=== PATIENT | male | born 1945 | race Caucasian/White ===

== ENCOUNTER 2021-05-04 13:18 | Emergency (ER) | payer MEDICARE ==
[2021-05-04 14:17] LABS: BASOPHIL 0.2 % (0-2); EOSINOPHIL 0.2 % (0-7); HCT 38.9 % (42.0-52.0); HGB 13.2 g/dl (13.2-18.0); LYMPHOCYTE 27.8 % (15-48); MCH 32.4 pg (25.0-31.0); MCHC 33.9 g/dL (32.0-36.0); MCV 95.6 fL (78.0-100.0); MONOCYTE 13.1 % (0-12); MPV 11.7 fL (6.0-9.5); NEUTROPHIL 58.5 % (41-80); NRBC 0; PLT 115 K/uL (150-400); RBC 4.07 M/uL (4.70-6.00); RDW 13.4 % (11.5-14.0); WBC 4.1 K/uL (4.0-10.5)
[2021-05-04 14:32] LABS: ALBUMIN 3.8 g/dL (3.4-5.0); BILIRUBIN - TOTAL 0.7 mg/dL (0.2-1.0); BUN/CREAT RATIO (CALC) 12.2 RATIO; CREATININE 1.48 mg/dL (0.67-1.17); GLOBULIN (CALCULATION) 3.6 g/dL; POTASSIUM 4.4 mmol/L (3.5-5.1); TOTAL PROTEIN 7.4 g/dL (6.4-8.2)
== END 2021-05-04 15:58 | disposition home or self-care (01) ==
LOC: FER 13:18
PROVIDERS: Emergency Medicine
DX: J98.11 Atelectasis (principal); N17.9 Acute kidney failure, unspecified; Z87.891 Personal history of nicotine dependence; Z20.822 Contact with and (suspected) exposure to COVID-19
CPT/HCPCS: 36415; 36600; 71045; 80053; 82803; 85025; 93005; U0002

== ENCOUNTER 2021-05-07 22:47 | Day surgery (SDCO) | payer MEDICARE ==
[~2021-05-07] VITALS: Ht 177.8 cm; Wt 97.7 kg
[2021-05-07 23:22] LABS: BASOPHIL 0.2 % (0-2); EOSINOPHIL 0 % (0-7); HCT 37.7 % (42.0-52.0); HGB 12.8 g/dl (13.2-18.0); LYMPHOCYTE 27.8 % (15-48); MCH 31.5 pg (25.0-31.0); MCV 92.9 fL (78.0-100.0); MONOCYTE 11.4 % (0-12); MPV 10.9 fL (6.0-9.5); NEUTROPHIL 60.2 % (41-80); NRBC 0; RBC 4.06 M/uL (4.70-6.00); RDW 13.2 % (11.5-14.0); WBC 4.5 K/uL (4.0-10.5)
[2021-05-07 23:37] LABS: PLT 90 K/uL (150-400)
[2021-05-07 23:41] LABS: LACTIC ACID 1.1 mmol/L (0.4-1.9)
[2021-05-08 00:27] LABS: ALBUMIN 3.5 g/dL (3.4-5.0); BILIRUBIN - TOTAL 0.7 mg/dL (0.2-1.0); BUN/CREAT RATIO (CALC) 14.8 RATIO; C-REACTIVE PROTEIN 3.4 mg/dL (<=0.90); CREATININE 1.49 mg/dL (0.67-1.17); GLOBULIN (CALCULATION) 3.8 g/dL; POTASSIUM 4.3 mmol/L (3.5-5.1); TOTAL PROTEIN 7.3 g/dL (6.4-8.2)
[2021-05-08 01:52] LABS: BILIRUBIN NEGATIVE (NEGATIVE); BLOOD NEGATIVE Ery/uL (NEGATIVE); CLARITY CLEAR (CLEAR); COLOR YELLOW (YELLOW); GLUCOSE (U) NORMAL (NORMAL); LEUKOCYTES NEGATIVE Leu/uL (NEGATIVE); NITRITE NEGATIVE (NEGATIVE); PROTEIN NEGATIVE (NEGATIVE); UROBILINOGEN 0.2 mg/dL (0.2-1.0)
[2021-05-09 07:01] LABS: BASOPHIL 0 % (0-2); EOSINOPHIL 0 % (0-7); HCT 37.8 % (42.0-52.0); HGB 13.3 g/dl (13.2-18.0); LYMPHOCYTE 30.9 % (15-48); MCH 31.7 pg (25.0-31.0); MCHC 35.2 g/dL (32.0-36.0); MONOCYTE 10.4 % (0-12); MPV 12.6 fL (6.0-9.5); NEUTROPHIL 57.4 % (41-80); NRBC 0; PLT 67 K/uL (150-400); WBC 3.8 K/uL (4.0-10.5)
[2021-05-09 07:26] LABS: ALBUMIN 2.9 g/dL (3.4-5.0); BILIRUBIN - TOTAL 0.5 mg/dL (0.2-1.0); BUN/CREAT RATIO (CALC) 18.8 RATIO; CREATININE 1.17 mg/dL (0.67-1.17); POTASSIUM 4.5 mmol/L (3.5-5.1); TOTAL PROTEIN 6.9 g/dL (6.4-8.2)
== END 2021-05-09 16:40 | disposition home or self-care (01) ==
LOC: FER 22:47 → FMS 05-08 04:36 → FTCU 05-08 04:36 → FMS 05-08 09:13
PROVIDERS: Emergency Medicine; Nurse Practitioner; ADMIT Internal Medicine
DX: U07.1 COVID-19 (principal); J12.82 Pneumonia due to coronavirus disease 2019; G93.40 Encephalopathy, unspecified; I10 Essential (primary) hypertension; I34.1 Nonrheumatic mitral (valve) prolapse; K21.9 Gastro-esophageal reflux disease without esophagitis; N40.0 Benign prostatic hyperplasia without lower urinary tract symptoms; I25.10 Atherosclerotic heart disease of native coronary artery without angina pectoris; E78.5 Hyperlipidemia, unspecified; E86.0 Dehydration; N17.9 Acute kidney failure, unspecified; Z87.891 Personal history of nicotine dependence
CPT/HCPCS: 36415; 36600; 70450; 71045; 71275; 80053; 81003; 82728; 82803; 83605; 84145; 84484; 85025; 85379; 86140; 87040; 93005; 94010; 94760; 94762; C9399; G0378; J0456; J0696; J1100; J1650; J2543; J3370; J7030; J7050; J7121; Q9967; U0002

== ENCOUNTER 2021-09-27 10:48 | Emergency (ER) | payer MEDICARE ==
[2021-09-27] MEDS ORDERED: NORCO 5-325 TA1 EACH PO (12:39)
== END 2021-09-27 13:00 | disposition home or self-care (01) ==
LOC: FER 10:48
DX: S82.842A Displaced bimalleolar fracture of left lower leg, initial encounter for closed fracture (principal); S80.12XA Contusion of left lower leg, initial encounter; W18.30XA Fall on same level, unspecified, initial encounter; X50.1XXA Overexertion from prolonged static or awkward postures, initial encounter
CPT/HCPCS: 73610